=== PATIENT | male | born 1990 | race Caucasian/White ===

== ENCOUNTER 2021-09-28 22:23 | Emergency (ER) | payer SELFPAY | END 2021-09-28 23:04 | disposition home or self-care (01) | LOC: NAV ERS 22:23 | DX: Z76.0 Encounter for issue of repeat prescription (principal); F11.90 Opioid use, unspecified, uncomplicated; F17.200 Nicotine dependence, unspecified, uncomplicated | CPT/HCPCS: 99281 ==